=== PATIENT | male | born 1980 | race Caucasian/White ===

== ENCOUNTER 2018-10-23 14:58 | Observation (INO) | payer OTHER ==
[2018-10-23] MEDS ORDERED: LR 1,000 ML IV ONE (15:38)
--- NOTE | 2018-10-23 16:15 | PDANEPAE ---
ANE History of Present Illness hemorrhoidectomy ANE Past Medical History - Cardiovascular History Hx Hypertension: No Hx Arrhythmias: No Hx Chest Pain: No Hx Coronary Artery / Peripheral Vascular Disease: No Hx CHF / Valvular Disease: No Hx Palpitations: No - Pulmonary History Hx COPD: No Hx Asthma/Reactive Airway Disease: No Hx Recent Upper Respiratory Infection: No Hx Oxygen in Use at Home: No Hx Sleep Apnea: No Sleep Apnea Screening Result - Last Documented: Negative - Neurologic History Hx Cerebrovascular Accident: No Hx Seizures: No Hx Dementia: No - Endocrine History Hx Diabetes: No - Renal History Hx Renal Disorders: No - Liver History Hx Hepatic Disorders: No - Neurological & Psychiatric Hx Hx Neurological and Psychiatric Disorders: No - Cancer History Hx Cancer: No - Congenital Disorder History Hx Congenital Disorders: No - GI History Hx Gastrointestinal Disorders: No - Other Health History Other Health History: partial front - Chronic Pain History Chronic Pain: No - Surgical History Prior Surgeries: none in last 5 yrs. 25 yrs ago tonsilectomy ANE Review of Systems Review of Systems: - Exercise capacity METS (RN): 4 METS ANE Patient History - Allergies Allergies/Adverse Reactions: No Known Allergies Allergy (Verified 10/21/18 16:38) - Home Medications Home medications: home medication list seen and reviewed Home Medications: NK [No Known Home Meds] 10/21/18 [Last Taken Unknown] - NPO status NPO Status: no food or drink >8 hours NPO Since - Liquids (Date): 10/23/18 NPO Since - Liquids (Time): 14:00 NPO Since - Solids (Date): 10/23/18 NPO Since - Solids (Time): 08:00 - Anes Hx Anes Hx: no prior problems - Smoking Hx Smoking Status: Never smoked - Alcohol Use Alcohol Use: Rarely - Family Anes Hx Family Anes Hx: none Family Hx Anesthesia Complications: none ANE Labs/Vital Signs - Vital Signs Blood Pressure: 128/78 Heart Rate: 55 Respiratory Rate: 20 O2 Sat (%): 97 Height: 182.88 cm Weight: 106.594 kg ANE Physical Exam - Airway Neck exam: FROM Mallampati Score: Class 1 Mouth exam: normal dental/mouth exam, dentures (partial plate, pt. will remove) ANE Anesthesia Plan Anesthesia Plan: GA w LMA
[2018-10-23] MEDS ORDERED: BUPIVACAINE/EPI 0.5% 30 ML SDV ONE (16:19)
--- NOTE | 2018-10-23 16:23 | PDHPUP ---
History & Physical Update H&P update statement: This history and physical update is based on an assessment of the patient which was completed after admission or registration (within 24 hours), but prior to the surgery/procedure. H&P update: H&P reviewed & patient examined, no change in patient's condition since H&P completed
[2018-10-23] MEDS ORDERED: fentaNYL 100 MCG/2 ML INJ ONE ×2 (16:30→17:51)
[2018-10-23] MEDS ORDERED: ONDANSETRON 4 MG/2 ML VIAL ONE (16:30)
[2018-10-23] MEDS ORDERED: LIDOCAINE 2% 100 MG/5 ML SYR ONE (16:31)
[2018-10-23] MEDS ORDERED: DEXAMETHASONE 4 MG/ML VIAL ONE ×2 (16:31)
[2018-10-23] MEDS ORDERED: PROPOFOL/EMULSION 500 MG/50 ML BOTTLE IV ONE (16:32)
[2018-10-23] MEDS ORDERED: ONDANSETRON DISINTEGRATING 4 MG TAB PO PRN (17:47)
[2018-10-23] MEDS ORDERED: LR 500 ML IV PRN (17:48)
[2018-10-23] MEDS ORDERED: HYDROCODONE/APAP 5/325 TAB PO PRN (17:48)
[2018-10-23] MEDS ORDERED: PHENYLEPHRINE HCL 100 MCG/ML SYR IVP PRN (17:48)
[2018-10-23] MEDS ORDERED: MEPERIDINE 25 MG/0.5 ML AMP IVP PRN (17:48)
[2018-10-23] MEDS ORDERED: ALBUTEROL 3 ML DEYVIAL IH PRN (17:48)
[2018-10-23] MEDS ORDERED: ONDANSETRON 4 MG/2 ML VIAL IVP PRN (17:48)
[2018-10-23] MEDS ORDERED: LABETALOL HCL 5 MG/ML 20 ML MDV IVP PRN (17:48)
[2018-10-23] MEDS ORDERED: DEXAMETHASONE 4 MG/ML VIAL IVP PRN (17:48)
[2018-10-23] MEDS ORDERED: ACETAMINOPHEN 500 MG TAB PO PRN (17:48)
[2018-10-23] MEDS ORDERED: METOCLOPRAMIDE 10 MG/2 ML VIAL IVP PRN (17:48)
[2018-10-23] MEDS ORDERED: fentaNYL 100 MCG/2 ML INJ IVP PRN (17:48)
[2018-10-23] MEDS ORDERED: oxyCODONE IR 5 MG TAB PO PRN (17:48)
[2018-10-23] MEDS ORDERED: PROMETHAZINE HCL 25 MG/ML INJ IVP PRN (17:48)
[2018-10-23] MEDS ORDERED: NALOXONE HCL 0.4 MG/ML INJ IVP PRN (17:48)
--- NOTE | 2018-10-23 17:48 | POSTOPPROG ---
Post Op Note Date of Operation: 10/23/18 Surgeon: Waldo Cook Pill Machine Operator: kiana Anesthesiologist: Lj Anesthesia: LMA Pre-op Diagnosis: bleeding hemorrhoids gradre 4 Post-op Diagnosis: same Procedure: 3 column hemorrhoidectomy Inf/Abcess present in the surg proc area at time of surgery?: No EBL: Minimal Complications: none Specimen(s): hemorrhoids
[2018-10-23] MEDS ORDERED: ACETAMINOPHEN 325 MG TAB ONE (19:49)
[2018-10-23] MEDS ORDERED: ACETAMINOPHEN 500 MG TAB ONE (19:51)
[2018-10-23] MEDS: oxyCODONE IR 5 MG TAB PO PRN (20:24)
[2018-10-24] MEDS: oxyCODONE IR 5 MG TAB PO PRN (00:32)
[2018-10-24 08:26] VITALS: BP 102/55
[2018-10-24] MEDS ORDERED: ACETAMINOPHEN 325 MG TAB PO PRN (09:22)
[2018-10-24] MEDS ORDERED: KETOROLAC 30 MG/1 ML SDV IVP ONE (09:22)
--- NOTE | 2018-10-24 09:25 | SOAPPROG ---
SOAP Progress Note Assessment/Plan: Assessment/Plan: 38 yo post op hemorrhoidectomy Kept o/n for pain and voiding issues Able to void this am Pain 06/13 Oxycodone not totally effective Need to add antiinflammatory and tylenol Continue supportive care likely d/c after noon 10/24/18 09:23 Objective: Vital Signs Temp Pulse Resp BP Pulse Ox 36.9 C 88 16 102/55 L 92 10/24/18 08:00 10/24/18 08:00 10/24/18 08:00 10/24/18 08:00 10/24/18 08:00 10/23/18 10/24/18 10/25/18 05:59 05:59 05:59 Intake Total 800 Balance 800 ICD10 Worksheet Patient Problems: Problems Problem Status Onset Complex fourth degree hemorrhoid Acute - ICD10 Problem Qualifiers (1) Complex fourth degree hemorrhoid
--- NOTE | 2018-10-25 04:13 | GOP ---
DATE OF OPERATION: 10/23/2018 SURGEON: Waldo Cook MD ANESTHESIA: General LMA. ANESTHESIOLOGIST: Dr. Calhoun PREOPERATIVE DIAGNOSIS: Symptomatic stage IV hemorrhoids. POSTOPERATIVE DIAGNOSIS: Symptomatic stage IV hemorrhoids. PROCEDURE PERFORMED: 3-column hemorrhoidectomy, open. FINDINGS: SPECIMENS: 3 columns of hemorrhoids to permanent pathology. ESTIMATED BLOOD LOSS: 25 mL. DESCRIPTION OF PROCEDURE: The patient was brought to the operating room. After induction of general LMA anesthesia in supine position, abdomen was prepped with chlorhexidine and draped sterilely. Piter e-out procedure performed according to institutional standards. Local anesthetic was infused in skin and subcutaneous tissues of the perirectal area after the patient had been prepped and placed in lit hotomy. The 3 columns are left, mid, and right upper and right lower hemorrhoid columns. The hemorr hoids were grasped with an Allis clamp. Harmonic scalpel was used to take off the redundant tissue a nd cauterize the base. Over-sewing of all of the hemorrhoidal columns were done with 3-0 chromic. T he digital rectal exam post procedure demonstrates resolution of those internal hemorrhoids. No acut e bleeding is noted on examination with Hill-Canela. Irrigated and aspirated until clear. More Ma rcaine is used for block. An before the patient is taken out of lithotomy. Needle, instr ument, sponge counts verified and correct. He is taken to recovery room in stable condition. No imm ediate complications. /[id number]/MODL
== END 2018-10-24 11:11 | disposition home or self-care (01) ==
LOC: FSGY 14:58 → F3E 18:23
PROVIDERS: ADMIT Surgery; ATTEND Surgery
PROC: 06BY0ZC Excision of Hemorrhoidal Plexus, Open Approach (ICD-10-PCS; principal; 2018-10-23 16:15)
DX: K64.3 Fourth degree hemorrhoids (principal)
CPT/HCPCS: 46260; G0378; J1100; J1885; J2001; J2405; J2704; J3010